=== PATIENT | female | born 2000 | race Hispanic/Latino ===

== ENCOUNTER 2021-01-06 16:37 | Emergency (ER) | payer SELFPAY ==
[2021-01-06] MEDS ORDERED: FAMOTIDINE 20 MG/2 ML VIAL IV ONE (18:25)
[2021-01-06] MEDS ORDERED: dexAMETHasone 10 MG/ML VIAL ONE (18:25)
[2021-01-06] MEDS ORDERED: DIPHENHYDRAMINE 50 MG/ML VIAL ONE (18:25)
--- NOTE | 2021-01-06 19:14 | ER ---
Nurse's Notes [facility] Name: Loren Meraz Age: 20 yrs Sex: Female : 2000 Arrival Date: 01/06/2021 Time: 16:41 Bed DX1 Private MD: Diagnosis: Unspecified contact dermatitis due to plants, except food Presentation: 01/06 17:32 Chief complaint: Patient states: Poison Virgen all over x 1 week, started getting worse jl7 yesterday, reports pressure in throat. Coronavirus screen: Vaccine status: Patient reports receiving the 2nd dose of the covid vaccine. At this time, the client does not indicate any symptoms associated with coronavirus-19. Ebola Screen: No symptoms or risks identified at this time. Initial Sepsis Screen: Does the patient meet any 2 criteria? No. Patient's initial sepsis screen is negative. Does the patient have a suspected source of infection? No. Patient's initial sepsis screen is negative. Risk Assessment: Do you want to hurt yourself or someone else? Patient reports no desire to harm self or others. Onset of symptoms was January 05, 2021. 17:32 Method Of Arrival: Ambulatory [facility] 17:32 Acuity: MERA 3 jl7 Triage Assessment: 17:34 General: Appears in no apparent distress. uncomfortable, Behavior is calm, cooperative, jl7 appropriate for age. Pain: Denies pain. 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 - Social history:: Smoking status: Patient denies any tobacco usage or history of. Screenin:56 Abuse screen: Denies threats or abuse. Denies injuries from another. Nutritional ld1 screening: No deficits noted. Tuberculosis screening: No symptoms or risk factors identified. Fall Risk None identified. Assessment: 17:56 General: Appears in no apparent distress. uncomfortable, Behavior is calm, cooperative, ld1 appropriate for age. Pain: Denies pain. Neuro: Level of Consciousness is awake, alert, obeys commands, Oriented to person, place, time, situation, Appropriate for age. Cardiovascular: Capillary refill < 3 seconds Patient's skin is warm and dry. Respiratory: Reports feeling like her throat is tight. Airway is patent Respiratory effort is even, unlabored, Respiratory pattern is regular, symmetrical. GI: Abdomen is flat, non-distended. : No signs and/or symptoms were reported regarding the genitourinary system. EENT: No signs and/or symptoms were reported regarding the EENT system. Derm: Rash noted that is itchy, red, Reports itching. Musculoskeletal: No signs and/or symptoms reported regarding the musculoskeletal system. Vital Signs: 17:32 BP 124 / 88; Pulse 97; Resp 19; Temp 99; Pulse Ox 100% ; Weight 63.5 kg; Height 5 ft. 5 jl7 in. (165.10 cm); 17:56 BP 128 / 89; Pulse 99; Resp 18; Pulse Ox 100% on R/A; Pain 0/10; ld1 17:32 Body Mass Index 23.30 (63.50 kg, 165.10 cm) jl7 ED Course: 16:41 Patient arrived in ED. mr 17:34 Triage completed. jl7 17:34 Arm band placed on right wrist. jl7 17:47 Andrew Frye NP is PHCP. pm1 17:47 Santi Edwards MD is Attending Physician. pm1 17:56 Patient has correct armband on for positive identification. Bed in low position. Call ld1 light in reach. Side rails up X2. Pulse ox on. NIBP on. 17:56 No provider procedures requiring assistance completed. ld1 19:21 IV discontinued, intact, bleeding controlled, No redness/swelling at site. ld1 Administered Medications: 18:00 Drug: Decadron - Dexamethasone 10 mg Route: IVP; Site: left antecubital; ld1 18:32 Follow up: Response: No adverse reaction ld1 18:00 Drug: Benadryl (diphenhydrAMINE) 25 mg Route: IVP; Site: left antecubital; ld1 18:31 Follow up: Response: No adverse reaction ld1 18:00 Drug: Pepcid (famotidine) 20 mg Route: IVP; Site: left antecubital; ld1 18:31 Follow up: Response: No adverse reaction ld1 Outcome: 19:13 Discharge ordered by MD. pm1 19:20 Discharged to home ambulatory. ld1 19:20 Condition: stable 19:20 Discharge instructions given to patient, Instructed on discharge instructions, follow up and referral plans. medication usage, Demonstrated understanding of instructions, follow-up care, medications, Prescriptions given X 3. 19:21 Patient left the ED. ld1 Signatures: KentRadha malloy mr MelvaAndrew, BUILDINGS AND GROUNDS COORDINATOR BUILDINGS AND GROUNDS COORDINATOR pm1 Hilton Maddox RN RN jl7 Denise Villa RN RN ld1 Corrections: (The following items were deleted from the chart) 17:35 17:32 Coronavirus screen: Vaccine status: Patient reports being unvaccinated. At this jl7 time, the client does not indicate any symptoms associated with coronavirus-19. jl7
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
[2021-01-06 20:24] VITALS: TEMP 99; O2SAT 100
[2021-01-06 20:25] VITALS: BP 128/89
== END 2021-01-06 19:21 | disposition home or self-care (01) ==
LOC: ER 16:37
DX: L25.5 Unspecified contact dermatitis due to plants, except food (principal)
CPT/HCPCS: 96374; 96375; 99283; J1100; J1200